=== PATIENT | female | born 1965 | race American Indian/Alaskan Native ===

== ENCOUNTER 2017-06-26 13:19 | Emergency (ER) | payer MEDICAID ==
[2017-06-26 13:28] VITALS: BP 152/105
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
--- NOTE | 2017-06-26 22:22 | CR ---
Pelvis and right hip: AP view of the pelvis was obtained as well as AP and frog-leg lateral views of the right hip. Comparison: No previous pelvis or hip exam. Joint spaces within both hips are maintained. Slightly prominent superior acetabulum noted within both hips which is normal variant. Sacroiliac joints are unremarkable. No fracture or other bony abnormality is seen. Impression: 1. Nothing acute is appreciated on AP pelvis or on two-view right hip exam. Diagnostic code #1
--- NOTE | 2017-06-26 22:22 | CR ---
Right knee: Four views of the right knee were obtained. Comparison: No prior knee exam. Medial and lateral joint spaces are maintained in height. No joint effusion is seen. No fracture or other bony abnormality is seen. Soft tissue calcification is seen posterior to the inferior knee which is felt to be vascular in etiology and incidental. Impression: 1. Incidental finding. Nothing acute is seen on right knee exam. Diagnostic code #2
== END 2017-06-26 16:15 | disposition home or self-care (01) ==
LOC: JD.ED 13:19
DX: S83.91XA Sprain of unspecified site of right knee, initial encounter (principal); M25.551 Pain in right hip; F17.210 Nicotine dependence, cigarettes, uncomplicated; Z79.899 Other long term (current) drug therapy; W01.10XA Fall on same level from slipping, tripping and stumbling with subsequent striking against unspecified object, initial encounter
CPT/HCPCS: 73502-26-RT; 73502-RT; 73564-26-RT; 73564-RT; 99283

== ENCOUNTER 2018-04-17 11:41 | Emergency (ER) | payer MEDICAID ==
[2018-04-17 12:00] VITALS: BP 126/88
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
== END 2018-04-17 14:45 | disposition home or self-care (01) ==
LOC: JD.ED 11:41
DX: R10.31 Right lower quadrant pain (principal); F17.210 Nicotine dependence, cigarettes, uncomplicated; F32.9 Major depressive disorder, single episode, unspecified; F41.9 Anxiety disorder, unspecified; Z79.899 Other long term (current) drug therapy; Z98.890 Other specified postprocedural states
CPT/HCPCS: 36415; 80053; 81001; 85025; 99284

== ENCOUNTER 2021-07-22 11:33 | Emergency (ER) | payer SELFPAY | END 2021-07-22 11:55 | disposition home or self-care (01) | LOC: JD.ED 11:33 | DX: K94.03 Colostomy malfunction (principal) | CPT/HCPCS: 49451; 99282-25 ==

== ENCOUNTER 2021-10-21 09:34 | Emergency (ER) | payer MEDICAID ==
[2021-10-21 11:51] VITALS: BP 137/91; PULSE 103
== END 2021-10-21 15:35 | disposition home or self-care (01) ==
LOC: JD.ED 09:34
DX: S92.311A Displaced fracture of first metatarsal bone, right foot, initial encounter for closed fracture (principal); F17.210 Nicotine dependence, cigarettes, uncomplicated; W01.0XXA Fall on same level from slipping, tripping and stumbling without subsequent striking against object, initial encounter
CPT/HCPCS: 73610-26-RT; 73610-RT; 73630-26-RT; 73630-RT; 99283; 99283-25